=== PATIENT | female | born 1970 | race Caucasian/White ===

== ENCOUNTER 2017-08-22 10:34 | Emergency (ER) | payer OTHER ==
--- NOTE | 2017-08-22 11:09 | EDM.PDOC ---
ED HPI GENERAL MEDICAL PROBLEM - General Chief Complaint: ENT Problem Stated Complaint: SORE THROAT Time Seen by Provider: 08/22/17 10:55 Source of Information: Reports: Patient History Limitations: Reports: No Limitations - History of Present Illness INITIAL COMMENTS - FREE TEXT/NARRATIVE: 47-year-old female with a chronic history of asthma presents with a sore throat for the past 2-3 days, and a lingering cough for the past 2-3 weeks. It's particularly sore on the right side, no ear pain or significant fever. No nausea or vomiting. No shortness of breath. Onset: Gradual Severity: Mild Associated Symptoms: Denies: Fever/Chills, Headaches, Nausea/Vomiting, Shortness of Breath Throat Pain Score (Numeric/FACES): 4 - Related Data Allergies Allergy/AdvReac Type Severity Reaction Status Date / Time meperidine [From Demerol] Allergy Anaphylactic Verified 08/22/17 11:00 Shock Sulfa (Sulfonamide Allergy Rash Verified 08/22/17 11:00 Antibiotics) Home Meds: Home Meds Aspirin [Ecotrin] 325 mg PO DAILY 08/22/17 [History] Baclofen 10 mg PO TID 08/22/17 [History] Lisinopril 10 mg PO DAILY 08/22/17 [History] Nitroglycerin [Nitrostat] 0.4 mg SL ASDIRECTED PRN 08/22/17 [History] Past Medical History HEENT History: Reports: Impaired Vision Other HEENT History: CONTACTS Cardiovascular History: Reports: Afib, Hypertension Respiratory History: Reports: Asthma [employer] COMM[employer]ICATIONS History: Reports: , Spontaneous Neurological History: Reports: Reflex Sympathetic Dystrophy - Past Surgical History Female Surgical History: Reports: Tubal Ligation Other Female Surgeries/Procedures: TORN UTERINE WALL WITH REPAIR DONE Other Neurological Surgeries/Procedures: SPINAL CORD STIMULATOR Other Musculoskeletal Surgeries/Procedures:: FOOT SURGERY Social & Family History - Tobacco Use Smoking Status *Q: Current Every Day Smoker Years of Tobacco use: 15 Packs/Tins Daily: 0.5 - Caffeine Use Caffeine Use: Reports: Coffee - Recreational Drug Use Recreational Drug Use: No ED ROS ENT - Review of Systems Review Of Systems: See Below HEENT: Reports: Throat Pain. Denies: Rhinitis Respiratory: Reports: Cough. Denies: Shortness of Breath Cardiovascular: Denies: Chest Pain GI/Abdominal: Denies: Nausea, Vomiting Neurological: Reports: Other (Chronic reflex sympathetic dystrophy) Psychiatric: Reports: No Symptoms ED EXAM, ENT - Physical Exam Exam: See Below Exam Limited By: No Limitations General Appearance: Alert, No Apparent Distress Mouth/Throat: Pharyngeal Erythema, Throat Pain. No: Tonsillar Exudates Head: Atraumatic Neck: No: Lymphadenopathy (R), Lymphadenopathy (L) Respiratory/Chest: No Respiratory Distress, Lungs Clear Neurological: Alert, Oriented Psychiatric: Normal Affect, Normal Mood Skin: Warm, Dry Course - Vital Signs Last Recorded V/S: Last Vital Signs Temp 97.3 F 08/22/17 10:56 Pulse 92 08/22/17 10:56 Resp 14 08/22/17 10:56 BP 149/90 H 08/22/17 10:56 Pulse Ox 98 08/22/17 10:56 - Orders/Labs/Meds Meds: Medications Discontinued Medications Generic Name Dose Route Start Last Admin Trade Name Freq PRN Reason Stop Dose Admin Penicillin G Procaine/Benzathine 1.2 millunits 08/22/17 11:24 08/22/17 11:33 Bicillin C-R 900/300 IM 08/22/17 11:25 1.2 millunits ONETIME ONE Administration - Re-Assessments/Exams Free Text/Narrative Re-Assessment/Exam: 08/22/17 11:09 A rapid strep was obtained. 08/22/17 15:20 Strep was positive, patient requested an injection of penicillin so Bicillin 900 300 was given Departure - Departure Time of Disposition: 12:02 Disposition: Home, Self-Care 01 Condition: Good Clinical Impression: Strep pharyngitis - Discharge Information Instructions: Strep Throat Referrals: PCP,None [Primary Care Provider] - Forms: ED Department Discharge Care Plan Goals: Rest, fluids, anti-inflammatories such as ibuprofen and lozenges should help. Consider rechecking in 3-4 days if not improving satisfactorily.
[2017-08-22] MEDS ORDERED: Penicillin G Benzathine/Procaine 900-300 1.2 Millunits/2 ML Syringe IM ONE (11:24)
== END 2017-08-22 12:02 | disposition home or self-care (01) ==
LOC: JP.ED 10:34
DX: J02.0 Streptococcal pharyngitis (principal); I10 Essential (primary) hypertension; F17.210 Nicotine dependence, cigarettes, uncomplicated; Z79.82 Long term (current) use of aspirin; Z79.899 Other long term (current) drug therapy; Z88.2 Allergy status to sulfonamides; Z88.6 Allergy status to analgesic agent
CPT/HCPCS: 87430; 96372; 99283; J0558